=== PATIENT | female | born 1985 ===

== ENCOUNTER 2022-04-13 16:36 | Inpatient (IN) ==
[2022-04-13 17:25] LABS: ABS Lymphocytes 2.1 10^3/ul (1.0-4.8); ABS Monocytes 0.6 10^3/ul (0-0.8); ABS Neutrophils 6.3 10^3/ul (1.5-7.7); Eosinophil % 0.4 %; Hematocrit 46 % (35-47); Hemoglobin 15.7 g/dL (12.0-16.0); Lymphocyte % 23.2 %; Mean Corpuscular HGB Conc 35 g/dL (31-36); Mean Corpuscular Hemoglobin 33 pg (27-31); Mean Corpuscular Volume 95 fL (80-97); Mean Platelet Volume 7.6 fL (7.4-10.4); Platelet Count 332 10^3/uL (150-450); Red Cell Distribution Width 12 % (10-15)
[2022-04-13 17:42] LABS: Albumin 3.8 g/dL (3.2-5.2); Albumin/Globulin Ratio 1.3 (1-3); C Reactive Protein 2.63 mg/L (<8.01); Calcium 8.9 mg/dL (8.6-10.3); Globulin 2.9 g/dL (2-4); Magnesium 2.1 mg/dL (1.9-2.7); Potassium 4.5 mmol/L (3.5-5.0); Total Bilirubin 0.8 mg/dL (0.2-1.0); Total Protein 6.7 g/dL (6.4-8.9); eGFR CKD-EPI 116.4 (>60)
[2022-04-13 18:47] LABS: Erythrocyte Sed Rate 7 mm/Hr (0-19)
[2022-04-13 18:59] LABS: High Sensitivity Troponin 1 Hr 246 pg/mL (<15)
[2022-04-13 21:23] LABS: High Sensitivity Troponin 3 Hr 206 pg/mL (<15)
[2022-04-14 05:41] LABS: ABS Lymphocytes 1.5 10^3/ul (1.0-4.8); ABS Monocytes 0.5 10^3/ul (0-0.8); ABS Neutrophils 3.2 10^3/ul (1.5-7.7); Eosinophil % 0.6 %; Hematocrit 42 % (35-47); Hemoglobin 14.7 g/dL (12.0-16.0); Lymphocyte % 29.4 %; Mean Corpuscular HGB Conc 35 g/dL (31-36); Mean Corpuscular Hemoglobin 33 pg (27-31); Mean Corpuscular Volume 95 fL (80-97); Mean Platelet Volume 7.5 fL (7.4-10.4); Platelet Count 268 10^3/uL (150-450); Red Blood Count 4.41 10^6 /uL (3.70-4.87); Red Cell Distribution Width 12 % (10-15); White Blood Count 5.2 10^3/uL (3.5-10.8)
[2022-04-14 06:00] LABS: Albumin 3.4 g/dL (3.2-5.2); Albumin/Globulin Ratio 1.4 (1-3); Calcium 8.6 mg/dL (8.6-10.3); Globulin 2.5 g/dL (2-4); Potassium 4.5 mmol/L (3.5-5.0); Total Bilirubin 0.6 mg/dL (0.2-1.0); Total Protein 5.9 g/dL (6.4-8.9); eGFR CKD-EPI 115.5 (>60)
[2022-04-14 08:38] LABS: Magnesium 2.1 mg/dL (1.9-2.7)
[2022-04-14 08:52] LABS: CRP High Sensitivity 1.62 mg/L (<2.00); HDL Cholesterol 47.3 mg/dL
[2022-04-14 10:13] LABS: T4, Total 8.53 mcg/dL (6.09-12.23)
[2022-04-14 10:26] LABS: Folate 8.74 ng/mL (5.90-24.80)
[2022-04-14 10:29] LABS: C Reactive Protein 1.93 mg/L (<8.01)
[2022-04-14 12:39] LABS: Erythrocyte Sed Rate 6 mm/Hr (0-19)
[2022-04-14 13:09] LABS: Urine Appearance Clear; Urine Bilirubin Negative (Negative); Urine Blood Trace (Intact) (Negative); Urine Color Straw; Urine Glucose Negative (Negative); Urine Ketones Negative (Negative); Urine Specific Gravity <=1.005 (1.005-1.030); Urine pH 6.5 (5.0-9.0)
[2022-04-14 13:10] LABS: Urine Nitrite Negative (Negative); Urine Protein Negative (Negative); Urine Urobilinogen 0.2 (Negative) (Negative)
[2022-04-14 13:20] LABS: Urine Bacteria Absent (Absent); Urine Red Blood Cell Absent (Absent); Urine Squamous Epithelial Cell Present (Absent); Urine White Blood Cell Trace(0-5/hpf) (Absent)
[2022-04-14] MEDS ORDERED: Enoxaparin 40 MG/0.4 ML SYR SUBCUT SCH (14:00)
[2022-04-14] MEDS ORDERED: Cyanocobalamin INJ 1,000 MCG/ML VIAL 1 ML VIAL IM SCH (16:00)
[2022-04-14] MEDS ORDERED: Al Hydrox/Mg Hydrox/Simet LIQ 30 ML UDC PO ONE (18:32)
[2022-04-14] MEDS: CMCS: Estradiol 1 mg TAB (NF) PO SCH (21:05)
[2022-04-15 05:59] LABS: ABS Lymphocytes 1.9 10^3/ul (1.0-4.8); ABS Monocytes 0.5 10^3/ul (0-0.8); ABS Neutrophils 4.4 10^3/ul (1.5-7.7); Eosinophil % 0.7 %; Hematocrit 37 % (35-47); Lymphocyte % 27.6 %; Mean Corpuscular HGB Conc 35 g/dL (31-36); Mean Corpuscular Hemoglobin 33 pg (27-31); Mean Corpuscular Volume 95 fL (80-97); Mean Platelet Volume 7.7 fL (7.4-10.4); Platelet Count 248 10^3/uL (150-450); Red Blood Count 3.93 10^6 /uL (3.70-4.87); Red Cell Distribution Width 12 % (10-15); White Blood Count 6.8 10^3/uL (3.5-10.8)
[2022-04-15 06:19] LABS: Anion Gap 8 mmol/L (2-11); Blood Urea Nitrogen 6 mg/dL (6-24); CO2 Carbon Dioxide 26 mmol/L (22-32); Calcium 8.3 mg/dL (8.6-10.3); Chloride 104 mmol/L (101-111); Glucose 88 mg/dL (70-100); Magnesium 2.1 mg/dL (1.9-2.7); Potassium 4.9 mmol/L (3.5-5.0); Sodium 138 mmol/L (135-145); eGFR CKD-EPI 116.8 (>60)
[2022-04-15] MEDS: Morphine 2 MG/ML SYRINGE IV PRN ×2 (08:21→11:37)
[2022-04-15] MEDS ORDERED: CMCS: Estradiol 1 mg TAB (NF) PO SCH (09:00)
[2022-04-15 10:23] LABS: High Sensitivity Troponin 1 Hr 79 pg/mL (<15)
[2022-04-15] MEDS ORDERED: Regadenoson 0.4 MG/5 ML SYRINGE ONE (11:14)
[2022-04-15] MEDS ORDERED: Morphine 4 MG/ML VIAL (1 ml) ONE (11:35)
[2022-04-15 14:02] LABS: % Iron Saturation 42 % (15-55); C Reactive Protein < 1.00 mg/L (<8.01); Iron 111 ug/dL (50-212); Total Iron Binding Capacity 263 mcg/dL (250-450); Transferrin 188 mg/dL (203-362); Unsaturated Iron Binding 152 ug/dL
[2022-04-15 14:19] LABS: Ferritin 152.5 ng/mL (11-307)
[2022-04-15 14:50] LABS: Vitamin D Total 25(OH) 30.6 ng/mL (20-50)
[2022-04-15 15:01] LABS: INR 0.97 (0.89-1.11)
[2022-04-15] MEDS: CMCS: Estradiol 1 mg TAB (NF) PO SCH (19:54)
[2022-04-16 08:35] LABS: ABS Lymphocytes 1.3 10^3/ul (1.0-4.8); ABS Monocytes 0.3 10^3/ul (0-0.8); ABS Neutrophils 4.1 10^3/ul (1.5-7.7); Eosinophil % 0.6 %; Hematocrit 39 % (35-47); Hemoglobin 13.1 g/dL (12.0-16.0); Mean Corpuscular HGB Conc 34 g/dL (31-36); Mean Corpuscular Hemoglobin 32 pg (27-31); Mean Corpuscular Volume 94 fL (80-97); Mean Platelet Volume 7.5 fL (7.4-10.4); Platelet Count 254 10^3/uL (150-450); Red Blood Count 4.14 10^6 /uL (3.70-4.87); Red Cell Distribution Width 12 % (10-15); White Blood Count 5.7 10^3/uL (3.5-10.8)
[2022-04-16 09:25] LABS: C Reactive Protein 4.87 mg/L (<8.01); Calcium 8.5 mg/dL (8.6-10.3); Magnesium 2.2 mg/dL (1.9-2.7); Potassium 4.4 mmol/L (3.5-5.0); eGFR CKD-EPI 115.5 (>60)
[2022-04-16 11:33] LABS: Immunoglobulin A 244 mg/dL (61 - 356)
[2022-04-16 11:55] VITALS: BP 110/66
[2022-04-16 12:11] LABS: Percent Fat 14 % fat (< 20)
[2022-04-16 13:21] LABS: EBV Capsid Ag IgG Ab Positive (Negative); EBV Capsid Ag IgM Ab Negative (Negative); Epstein-Barr Nuclear Antigen Positive (Negative)
[2022-04-16 16:49] LABS: Tissue Transglutaminase IgA Ab <1.2 U/mL
[2022-04-17 19:26] LABS: Anaplasma phagocytophilum Negative (Negative); B. miyamotoi PCR, B Negative (Negative); Babesia divergens/MO-1 Negative (Negative); Babesia ducani Negative (Negative); Ehrlichia chaffeensis Negative (Negative); Ehrlichia ewingii/canis Negative (Negative); Ehrlichia muris eauclairensis Negative (Negative)
[2022-04-18 16:41] LABS: Tissue Transglutaminase IgA Ab <1.2 U/mL
[2022-04-21 21:44] LABS: Immunoglobulin A 262 mg/dL (61 - 356)
== END 2022-04-16 11:40 | disposition home or self-care (01) | DRG 207 ==
LOC: MEDTELE → PREINTOOBSV 16:52 → MEDTELE 04-15 01:40
PROVIDERS: ADMIT Internal Medicine; ATTEND Internal Medicine